=== PATIENT | female | born 1985 | race Caucasian/White ===

== ENCOUNTER 2023-12-21 15:14 | Emergency (ER) | payer MEDICAID ==
[~2023-12-21] VITALS: Ht 160 cm; Wt 61.4 kg
[2023-12-21 15:35] VITALS: BP 130/97; TEMP 99.1
[2023-12-21] MEDS: dexamethasone sod phosphate 10mg/ml inj PO STA (18:51)
[2023-12-21] MEDS: guaiFENesin/DM 10ml UD oral syrup PO STA (18:51)
[2023-12-21] MEDS: ipratropium/albuterol 3ml nebule NEB STA (18:51)
[2023-12-21 18:53] VITALS: PULSE 117; RESP 18; O2SAT 99
[2023-12-21 19:02] VITALS: PULSE 131; RESP 18; O2SAT 100
[2023-12-21] MEDS ORDERED: BENZ-38 PO (19:26)
[2023-12-21] MEDS ORDERED: PROM118S5 PO (19:26)
[2023-12-21] MEDS ORDERED: PRED20TA PO (19:26)
[2023-12-21] MEDS ORDERED: ACET1TAB96 PO (19:37)
[2023-12-21] MEDS: acetaminophen/codeine 120mg/12mg per 5ml UD cup PO ONE (19:58)
[2023-12-21] MEDS: acetaminophen w/codeine (30MG) #3 tablet PO ONE (20:14)
[2023-12-21 20:18] VITALS: RESP 18
== END 2023-12-21 20:19 | disposition home or self-care (01) ==
LOC: ER 15:15
DX: J22 Unspecified acute lower respiratory infection (principal); Z79.52 Long term (current) use of systemic steroids; Z20.822 Contact with and (suspected) exposure to COVID-19
CPT/HCPCS: 36415; 71045; 87502; 87503; 87811; 94640; 99284; J1100; 94760

== ENCOUNTER 2024-03-02 10:17 | Emergency (ER) | payer MEDICAID ==
[~2024-03-02] VITALS: Ht 160 cm; Wt 62.0 kg
[2024-03-02 10:18] VITALS: BP 128/85; PULSE 80; RESP 16; O2SAT 99
[2024-03-02] MEDS ORDERED: VALS1TAB76 PO (11:11)
[2024-03-02 11:18] VITALS: TEMP 98.3
== END 2024-03-02 11:23 | disposition home or self-care (01) ==
LOC: ER 10:17
DX: I10 Essential (primary) hypertension (principal); Z76.0 Encounter for issue of repeat prescription; Z79.899 Other long term (current) drug therapy
CPT/HCPCS: 99281